=== PATIENT | male | born 1945 | race Caucasian/White ===

== ENCOUNTER 2017-01-30 09:56 | Inpatient (IN) | payer OTHER, MEDICARE ==
[2017-01-30] VITALS (12 sets, daily range): BP systolic 124–195; BP diastolic 69–97; PULSE 60–73; RESP 18–20; TEMP 97.4–98; O2SAT 95–99
[~2017-01-30] VITALS: Ht 182.9 cm; Wt 127.4 kg
[~2017-01-30 09:56] MED LIST: ALPR0.5T99 PO; ASPI81 PO; ATEN-102 PO; BUPR100T PO; BUSP10TA8 PO; CHOL1CAP6 PO; FLUN25I; FURO1TAB93 PO; LEVI20TA PO; POTA20IN2 IV; SILD20TA PO; TRAZ100T50 PO; WAL-10TA2 PO; ZOCO80TA PO
[2017-01-30] MEDS ORDERED: ASPI1TAB69 PO (10:13)
[2017-01-30] MEDS ORDERED: ALPR.5 PO (10:13)
[2017-01-30] MEDS ORDERED: ZOCO80TA PO (10:13)
--- NOTE | 2017-01-30 10:21 | PD ---
HPI Chief Complaint: Chest Pain Time Seen by Provider: 10:20 Travel History International Travel<30 days: No Contact w/Intl Traveler<30days: No Traveled to known affect area: No History of Present Illness HPI 71-year-old male came to the emergency room sent from [place] by ambulance with history of left-sided chest pain on and off for past couple of months. Initially this pain was associated with exertion but lately it has been even at rest. Patient was on the left side of his chest and radiates to his left jaw. Lately it has also been associated with some dizziness and shortness of breath. After listening to this history [place] called 911. Patient was given baby aspirin and 2 sublingual nitroglycerin spray and brought to the emergency room. Currently he is chest pain-free and vital signs are stable. No history of coronary artery disease. He does have history of type 2 diabetes and his sugar this morning was 221. His last stress test was 4-5 years ago and was negative. When the pain comes he describes it like pressure and an aching pain. Currently the pain is 0 out of 10. [facility] Past Medical History Narrative Medical List of his past medical, surgical, social and family history is reviewed from the nursing note. Anxiety: Yes Depression: Yes High Cholesterol: Yes Chest Pain: Yes Congestive Heart Failure: Yes Diabetes: Yes (STATES BORDERLINE) Patient Takes Glucophage: No GERD: Yes Hypertension: Yes Insomnia: Yes Neurologic: Yes (CLOSED HEAD INJURY 2010 AND IN [place]) Respiratory: Yes (bronchitis) Immunizations Current: Yes Tetanus Vaccination: < 5 Years Influenza Vaccination: Yes Past Surgical History Other Surgery: Yes (Pylonal cyst & REMOVAL OF RT SIDE NECK CYST IN 60'S priscilla disc c5-c6) Social History Alcohol Use: No Tobacco Use: No (QUIT 25 YRS AGO) Substance Use: No Allergies-Medications (Allergen,Severity, Reaction): Coded Allergies: No Known Allergies (Verified , 01/23/13) Comments No known drug allergies. Reported Meds & Prescriptions Reported Meds & Active Scripts Active Reported Triamcinolone Topical (Triamcinolone Acetonide) 0.1% Cream 1 Applic TOPICAL BID Apply to rash on face Pravastatin 40 Mg Tab 40 Mg PO HS Metformin (Metformin HCl) 500 Mg Tab 500 Mg PO BID With meals Potassium Chloride ER (Potassium Chloride) 20 Meq Tab 20 Meq PO DAILY Losartan (Losartan Potassium) 100 Mg Tab 100 Mg PO DAILY Hydrocortisone Topical 2.5% Cream 1 Applic TOPICAL BID PRN Lasix (Furosemide) 40 Mg Tab 40 Mg PO DAILY Flonase Nasal Lovell (Fluticasone Nasal Lovell) 50 Mcg/Act Lovell 2 Lovell EACH NARE DAILY Cetirizine (Cetirizine HCl) 10 Mg Tab 10 Mg PO DAILY Buspirone (Buspirone HCl) 10 Mg Tab 20 Mg PO BID Vitamin D-3 (Cholecalciferol) 1,000 Unit Tab 1,000 Units PO DAILY Trazodone HCl 100 Mg Tab 400 Mg PO HS PRN Bupropion HCl 100 Mg Tab 100 Mg PO BID Atenolol 50 Mg Tab 50 Mg PO DAILY Xanax (Alprazolam) 0.5 Mg Tab 0.5 Mg PO DAILY PRN Aspirin 81 Mg Tabdr 81 Mg PO BID Narrative Medication List of his home medications reviewed from the nursing note. Review of Systems Except as stated in HPI: all other systems reviewed are Neg Physical Exam Narrative GENERAL: Awake, alert, obese, no obvious distress SKIN: Warm and dry. HEAD: Atraumatic. Normocephalic. EYES: Pupils equal and round. No scleral icterus. No injection or drainage. ENT: No nasal bleeding or discharge. Mucous membranes pink and moist. NECK: Trachea midline. No JVD. CARDIOVASCULAR: Regular rate and rhythm. No murmur appreciated. RESPIRATORY: No accessory muscle use. Clear to auscultation. Breath sounds equal bilaterally. GASTROINTESTINAL: Abdomen soft, non-tender, nondistended. Hepatic and splenic margins not palpable. MUSCULOSKELETAL: No obvious deformities. No clubbing. No cyanosis. No edema. NEUROLOGICAL: Awake and alert. No obvious cranial nerve deficits. Motor grossly within normal limits. Normal speech. PSYCHIATRIC: Appropriate mood and affect; insight and judgment normal. Data Data Last Documented VS Vital Signs Date Time Temp Pulse Resp B/P Pulse Ox O2 Delivery O2 Flow Rate FiO2 01/30/17 11:14 64 20 126/79 96 Room Air 124/75 01/30/17 10:08 98.0 Orders Electrocardiogram (01/30/17 10:20) Basic Metabolic Panel (Bmp) (01/30/17 10:20) Ckmb (Isoenzyme) Profile (01/30/17 10:20) Complete Blood Count With Diff (01/30/17 10:20) Magnesium (Mg) (01/30/17 10:20) Prothrombin Time / Inr (Pt) (01/30/17 10:20) Act Partial Throm Time (Ptt) (01/30/17 10:20) Troponin I (01/30/17 10:20) Chest, Single Ap (01/30/17 10:20) Ecg Monitoring (01/30/17 10:20) Bilateral Bp Monitoring (01/30/17 10:20) Iv Access Insert/Monitor (01/30/17 10:20) Oximetry (01/30/17 10:20) Oxygen Administration (01/30/17 10:20) Sodium Chloride 0.9% Flush (Ns Flush) (01/30/17 10:30) Ct Brain W/O Iv Contrast(Rout) (01/30/17 ) CKMB (01/30/17 10:43) CKMB% (01/30/17 10:43) Admit Order (Ed Use Only) (01/30/17 12:26) Alprazolam (Xanax) (01/30/17 12:30) Atenolol (Tenormin) (01/30/17 13:00) Bupropion (Wellbutrin) (01/30/17 21:00) Cholecalciferol (Vitamin D3) (01/31/17 09:00) Atorvastatin (Lipitor) (01/31/17 09:00) Trazodone (Desyrel) (01/30/17 21:00) Labs Laboratory Tests Test 01/30/17 10:43 White Blood Count 6.4 TH/MM3 Red Blood Count 4.55 MIL/MM3 Hemoglobin 14.6 GM/DL Hematocrit 41.1 % Mean Corpuscular Volume 90.3 FL Mean Corpuscular Hemoglobin 32.2 PG Mean Corpuscular Hemoglobin 35.6 % Concent Red Cell Distribution Width 13.9 % Platelet Count 131 TH/MM3 Mean Platelet Volume 8.9 FL Neutrophils (%) (Auto) 60.0 % Lymphocytes (%) (Auto) 28.6 % Monocytes (%) (Auto) 7.3 % Eosinophils (%) (Auto) 3.5 % Basophils (%) (Auto) 0.6 % Neutrophils # (Auto) 3.8 TH/MM3 Lymphocytes # (Auto) 1.8 TH/MM3 Monocytes # (Auto) 0.5 TH/MM3 Eosinophils # (Auto) 0.2 TH/MM3 Basophils # (Auto) 0.0 TH/MM3 CBC Comment DIFF FINAL Differential Comment Prothrombin Time 11.5 SEC Prothromb Time International 1.0 RATIO Ratio Activated Partial 26.6 SEC Thromboplast Time Sodium Level 137 MEQ/L Potassium Level 4.8 MEQ/L Chloride Level 105 MEQ/L Carbon Dioxide Level 25.2 MEQ/L Anion Gap 7 MEQ/L Blood Urea Nitrogen 14 MG/DL Creatinine 1.04 MG/DL Estimat Glomerular Filtration 71 ML/MIN Rate Random Glucose 200 MG/DL Hemoglobin A1c 7.9 % Calcium Level 8.9 MG/DL Magnesium Level 2.0 MG/DL Total Bilirubin 0.7 MG/DL Direct Bilirubin 0.1 MG/DL Indirect Bilirubin 0.6 MG/DL Aspartate Amino Transf 70 U/L (AST/SGOT) Alanine Aminotransferase 56 U/L (ALT/SGPT) Alkaline Phosphatase 42 U/L Total Creatine Kinase 174 U/L Creatine Kinase MB 1.4 NG/ML Troponin I LESS THAN 0.02 NG/ML Total Protein 7.2 GM/DL Albumin 3.6 GM/DL Vitamin B12 Level 1119 PG/ML Thyroid Stimulating Hormone 1.240 uIU/ML 3rd Gen [facility] Medical Decision Making Medical Screen Exam Complete: Yes Emergency Medical Condition: Yes Medical Record Reviewed: Yes Interpretation(s) Twelve-lead EKG was reviewed by me. Normal sinus rhythm, normal axis, nonspecific ST-T wave changes. Heart rate of 64 bpm. Differential Diagnosis ACS, non-STEMI, unstable angina Narrative Course 11:29 AM awaiting for the chemistry and troponin. His symptoms sound classic for unstable angina at this point. He should be admitted medically so that a proper coronary artery disease workup can be done. Patient has significant risk factors in the form of uncontrolled diabetes, obesity, hypertension. History is sounds classic for unstable angina. Awaiting for the hospitalist to call back. Chest x-ray was within normal limits. Procedures EKG Prior to Arrival: No Diagnosis Primary Impression: Unstable angina Admitting Information Admitting Physician Requests: Observation Scripts Hydrocodone-Acetaminophen 7.5-325 mg Tab1 Tab PO Q6HR PRN (PAIN SCALE 6 TO 10) # 28 TAB Prov:Patricio Myles MD 02/01/17 Meclizine 25 Mg Tab25 Mg PO Q6H PRN (vertigo) #28 TAB Prov:Patricio Myles MD 01/31/17 Mayra Zamora MD Jan 30, 2017 10:21
[2017-01-30] MEDS ORDERED: SODIUM CHLORIDE 0.9% FLUSH 5 ML FLUSH IVF PRN (10:30)
--- NOTE | 2017-01-30 11:01 | RADRPT ---
EXAM DATE/TIME: 01/30/2017 10:17 [facility] COMPARISON: No previous studies available for comparison. INDICATIONS : Patient has had chest pain and dizziness for two days. MEDICAL HISTORY : None. SURGICAL HISTORY : None. ENCOUNTER: Initial ACUITY: 2 days PAIN SCORE: 3/10 LOCATION: Left chest FINDINGS: A single view of the chest demonstrates the lungs to be symmetrically aerated without evidence of mas s, infiltrate or effusion. The cardiomediastinal contours are unremarkable. Osseous structures are intact. CONCLUSION: No evidence of acute cardiopulmonary disease. Sarbjit Garnica MD on January 30, 2017 at 10:59 Board Certified Radiologist. This report was verified electronically.
[2017-01-30 11:05] LABS: AUTOMATED NEUTROPHIL # 3.8 TH/MM3 (1.8-7.7); BASOPHIL % 0.6 % (0.0-2.0); EOSINOPHIL # 0.2 TH/MM3 (0-0.4); EOSINOPHIL % 3.5 % (0.0-4.0); HEMATOCRIT 41.1 % (39.0-51.0); HEMO FLAGS DIFF FINAL; LYMPH % 28.6 % (9.0-44.0); LYMPHOCYTE # 1.8 TH/MM3 (1.0-4.8); MEAN CELL VOLUME 90.3 FL (80.0-100.0); MEAN CORPUSCULAR HEMOGLOBIN 32.2 PG (27.0-34.0); MEAN CORPUSCULAR HGB CONC 35.6 % (32.0-36.0); MONO % 7.3 % (0.0-8.0); PLATELET COUNT 131 TH/MM3 (150-450); RED BLOOD COUNT 4.55 MIL/MM3 (4.50-5.90); RED CELL DISTRIBUTION WIDTH 13.9 % (11.6-17.2); WHITE BLOOD COUNT 6.4 TH/MM3 (4.0-11.0)
[2017-01-30 11:19] LABS: APTT (PATIENT) 26.6 SEC (24.3-30.1); PROTHROMBIN TIME - PATIENT 11.5 SEC (9.8-11.6)
[2017-01-30] MEDS ORDERED: TRAZ100T5 PO (11:19)
[2017-01-30] MEDS ORDERED: ATEN50TA PO (11:19)
[2017-01-30] MEDS ORDERED: BUPR100T4 PO (11:19)
[2017-01-30] MEDS ORDERED: VITA10003 PO (11:19)
[2017-01-30 11:41] LABS: ANION GAP 7 MEQ/L (5-15); BICARBONATE 25.2 MEQ/L (21.0-32.0); BLOOD UREA NITROGEN 14 MG/DL (7-18); CHLORIDE 105 MEQ/L (98-107); CREATINE KINASE 174 U/L (39-308); GLOMERULAR FILTRATION RATE 71 ML/MIN (>89); SODIUM (NA) 137 MEQ/L (136-145)
[2017-01-30 11:50] LABS: POTASSIUM 4.8 MEQ/L (3.5-5.1)
[2017-01-30 11:53] LABS: CKMB 1.4 NG/ML (0.5-3.6)
--- NOTE | 2017-01-30 12:26 | RADRPT ---
EXAM DATE/TIME: 01/30/2017 11:26 [facility] COMPARISON: No previous studies available for comparison. INDICATIONS : Dizzy weakness for a couple of months RADIATION DOSE: 56.36 CTDIvol (mGy) MEDICAL HISTORY : Hypertension. Congestive heart failure. SURGICAL HISTORY : None. ENCOUNTER: Initial ACUITY: 2 months PAIN SCALE: 0/10 LOCATION: cranial TECHNIQUE: Multiple contiguous axial images were obtained of the head. Using automated exposure control and adj ustment of the mA and/or kV according to patient size, radiation dose was kept as low as reasonably a chievable to obtain optimal diagnostic quality images. FINDINGS: CEREBRUM: The ventricles are normal for age. No evidence of midline shift, mass lesion, hemorrhage or acute in farction. No extra-axial fluid collections are seen. POSTERIOR FOSSA: The cerebellum and brainstem are intact. The 4th ventricle is midline. The cerebellopontine angle i s unremarkable. Anatomic variant Dandy-Walker configuration incidentally noted. EXTRACRANIAL: The visualized portion of the orbits is intact. SKULL: The calvaria is intact. No evidence of skull fracture. CONCLUSION: Negative noncontrast head CT. Sarbjit Garnica MD on January 30, 2017 at 12:24 Board Certified Radiologist. This report was verified electronically.
[2017-01-30] MEDS ORDERED: MAGNESIUM HYDROXIDE SUSP 30 ML CUP PO PRN (12:30)
[2017-01-30] MEDS ORDERED: SENNOSIDES 8.6 MG TAB PO PRN (12:30)
[2017-01-30] MEDS ORDERED: NALOXONE HCL 0.4 MG/ML AMP IV PRN (12:30)
[2017-01-30] MEDS ORDERED: ONDANSETRON HCL 4 MG/2 ML VIAL IVP PRN (12:30)
[2017-01-30] MEDS ORDERED: ACETAMINOPHEN/HYDROcodone 325 MG/5 MG TAB PO PRN (12:30)
[2017-01-30] MEDS ORDERED: SODIUM CHLORIDE 0.9% FLUSH 5 ML FLUSH FLUSH PRN (12:30)
[2017-01-30] MEDS ORDERED: DEXTROSE 50% IN WATER 50 ML VIAL(D50) IV PUSH PRN (12:30)
[2017-01-30] MEDS ORDERED: ACETAMINOPHEN 325 MG TAB PO PRN ×2 (12:30)
[2017-01-30] MEDS ORDERED: GLUCAGON 1 MG/ML VIAL OTHER PRN (12:30)
[2017-01-30] MEDS ORDERED: ALPRAZolam 0.5 MG TAB PO PRN (12:30)
[2017-01-30] MEDS ORDERED: MORPHINE SULFATE 4 MG/ML INJ IV PRN (12:30)
[2017-01-30] MEDS ORDERED: BISACODYL 10 MG SUPP PR PRN (12:30)
[2017-01-30] MEDS ORDERED: NITROGLYCERIN 0.4 MG SL 25 TABS/BTL SL PRN (12:30)
[2017-01-30] MEDS ORDERED: ENALAPRILAT 1.25 MG/ML VIAL IV PRN (12:30)
--- NOTE | 2017-01-30 13:17 | HHI.HP ---
[facility] Service [facility] Primary Care Physician Akiko Francis MD Admission Diagnosis chest pain, rule out ACS Diagnoses: Chief Complaint: chest pain Travel History International Travel<30 Days: No Contact w/Intl Traveler <30 Da: No Traveled to Known Affected Are: No History of Present Illness 71-year-old male with history of HTN, HLD, DM, BPPV, presents with intermittent chest pains. The patient reports the chest pain started 2 months ago and now becoming worse and more frequent. The pains are located at the left anterior lateral chest with radiation into the left shoulder and jaw, described as an intermittent 3/10 ache, associated with mild shortness of breath, but no nausea/ vomiting, palpitations or diaphoresis. The pain can come on at anytime, can be sitting down or he can be walking, but he believes it may be related more to exertion. The pains typically last 30-40seconds at time then subsides on his own. The patient has become concerned over the past 2 days. He states yesterday he was pressure washing his house and had to rest every few minutes because of the pains and shortness of breath. He also walked down the driveway today and became extremely short of breath when he returned. Denies lower extremity edema. Denies any recent weight gain and actually reports he is intentionally trying to lose weight, down to 270lbs from 330lbs. The patient also complains of severe dizziness separate from the chest pains. He states he has had problems with vertigo ever since he fell from [facility] and hit his head on cement in [place] 3years ago, reportedly in a coma. Denies any hearing loss. He also reports extreme weakness. He states if he is on the ground, he is unable to get himself off the floor. He states [facility]. He has no other medical complaints at this time. Review of Systems Constitutional: COMPLAINS OF: Weight loss, Dizziness, DENIES: Diaphoretic episodes, Weight gain, Chills, Change in appetite Endocrine: DENIES: Polydipsia, Polyuria, Polyphagia Eyes: DENIES: Blurred vision, Vision loss, Double Vision Ears, nose, mouth, throat: COMPLAINS OF: Vertigo, DENIES: Ear Pain, Running Nose Respiratory: COMPLAINS OF: Shortness of breath, DENIES: Cough, Sputum production Cardiovascular: COMPLAINS OF: Chest pain, Dyspnea on Exertion, DENIES: Palpitations, Syncope, Lower Extremity Edema, Orthopnea Gastrointestinal: COMPLAINS OF: Diarrhea, DENIES: Abdominal pain, Constipation , Nausea, Vomiting Genitourinary: DENIES: Urinary frequency, Urgency, Dysuria Musculoskeletal: DENIES: Joint pain, Back pain, Neck pain Integumentary: DENIES: Pruritus, Rash Hematologic/lymphatic: DENIES: Bruising, Lymphadenopathy Immunologic/allergic: DENIES: Eczema, Urticaria Neurologic: DENIES: Abnormal gait, Headache, Localized weakness Psychiatric: DENIES: Anxiety, Depression Past Family Social History Past Medical History Hypertension Hyperlipidemia Diabetes Mellitus BPPV Hx of head trauma 3 years ago, now resulted in vertigo BPH Fatty Liver Thoracic aortic aneurysm PTSD Colon polyp Erectile dysfunction Past Surgical History C5-6 fusion Pilonidal cyst removed Reported Medications Vitamin D-3 (Cholecalciferol) 1,000 Unit Tab 1,000 Units PO DAILY Trazodone HCl 100 Mg Tab 300 Mg PO DAILY HS Bupropion HCl 100 Mg Tab 100 Mg PO BID Atenolol 50 Mg Tab 50 Mg PO DAILY Xanax (Alprazolam) 0.5 Mg Tab 0.5 Mg PO Q4H PRN Zocor (Simvastatin) 80 Mg Tab 80 Mg PO DAILY Aspirin 81 Mg Tabdr 81 Mg PO DAILY Sildenafil Citrate 20 Mg Tab 100 Mg PO DAILYPRN TAKE 1 HOUR PRIOR TO SEXUAL ACTIVITY Loratadine 10 Mg Tab 10 Mg PO DAILY Levitra (Vardenafil HCl) 20 Mg Tab 20 Mg PO Metformin bid Allergies: Coded Allergies: No Known Allergies (Verified , 01/23/13) Active Ordered Medications Current Medications Medications (Trade) Dose Ordered Sig/Jasper Route Start Time Stop Time Status Last Admin (Xanax) 0.5 mg Q4H PRN PO 01/30/17 12:30 (Tenormin) 50 mg DAILY PO 01/30/17 13:00 (Wellbutrin) 100 mg BID PO 01/30/17 21:00 (Vitamin D3) 1,000 units DAILY PO 01/31/17 09:00 Non-Formulary Medication 80 mg DAILY PO 01/31/17 09:00 UNV (Desyrel) 300 mg HS PO 01/30/17 21:00 (D50w (Vial) Inj) 25 ml UNSCH PRN IV PUSH 01/30/17 12:30 (Glucagon Inj) 1 mg UNSCH PRN OTHER 01/30/17 12:30 (Vasotec Inj) 1.25 mg Q6H PRN IV 01/30/17 12:30 (Catapres) 0.1 mg Q6H PRN PO 01/30/17 12:30 (Aspirin) 325 mg DAILY PO 02/01/17 09:00 (Nitrostat Sl) 0.4 mg Q5M PRN SL 01/30/17 12:30 (NS Flush) 2 ml UNSCH PRN FLUSH 01/30/17 12:30 (NS Flush) 2 ml BID FLUSH 01/30/17 21:00 (Tylenol) 650 mg Q4H PRN PO 01/30/17 12:30 (Zofran Inj) 4 mg Q6H PRN IVP 01/30/17 12:30 (Dulcolax Supp) 10 mg DAILY PRN IN 01/30/17 12:30 (Colace) 100 mg Q12H PO 01/30/17 13:00 (Milk Of Magnesia Liq) 30 ml Q12H PRN PO 01/30/17 12:30 (Senokot) 17.2 mg Q12H PRN PO 01/30/17 12:30 (Tylenol) 650 mg Q6H PRN PO 01/30/17 12:30 (Duncan 5-325 Mg) 1 tab Q4H PRN PO 01/30/17 12:30 (Duncan 7.5-325 Mg) 1 tab Q4H PRN PO 01/30/17 12:30 (Morphine Inj) 1 mg Q3H PRN IV 01/30/17 12:30 (Narcan Inj) 0.4 mg UNSCH PRN IV 01/30/17 12:30 Family History Father with massive AL, age 36 Social History Quit smoking tobacco 25years ago Denies any alcohol use Denies any illicit drug use Physical Exam Vital Signs Vital Signs Date Time Temp Pulse Resp B/P Pulse Ox O2 Delivery O2 Flow Rate FiO2 3/8/17 12:44 62 20 144/78 99 Room Air 01/30/17 11:14 64 20 126/79 96 Room Air 124/75 01/30/17 11:13 73 20 126/69 96 Room Air 01/30/17 11:12 97 Room Air 01/30/17 11:10 65 20 97 Room Air 01/30/17 11:10 98 Room Air 01/30/17 10:08 98.0 66 20 97 Physical Exam GENERAL: Well-nourished, well-developed obese male patient in NAD. SKIN: Warm and dry. No rash. HEAD: Normocephalic. Atraumatic. EYES: Pupils equal and round. No scleral icterus. No injection or drainage. No nystagmus. ENT: No nasal bleeding or discharge. Mucous membranes pink and moist. NECK: Supple. Trachea midline. CARDIOVASCULAR: Regular rate and rhythm. S1, S2 noted. No murmur appreciated. RESPIRATORY: No accessory muscle use. Clear to auscultation. Breath sounds equal bilaterally. GASTROINTESTINAL: Abdomen soft, non-tender, nondistended. Normoactive bowel sounds x4. MUSCULOSKELETAL: No obvious deformities. Trace b/l lower extremity edema. NEUROLOGICAL: Awake and alert. No obvious cranial nerve deficits. Motor grossly within normal limits. 5/5 muscle strength in bilateral upper and lower extremities. Normal speech. PSYCHIATRIC: Slightly anxious mood; insight and judgment normal. Laboratory Laboratory Tests Test 01/30/17 10:43 White Blood Count 6.4 Red Blood Count 4.55 Hemoglobin 14.6 Hematocrit 41.1 Mean Corpuscular Volume 90.3 Mean Corpuscular Hemoglobin 32.2 Mean Corpuscular Hemoglobin 35.6 Concent Red Cell Distribution Width 13.9 Platelet Count 131 Mean Platelet Volume 8.9 Neutrophils (%) (Auto) 60.0 Lymphocytes (%) (Auto) 28.6 Monocytes (%) (Auto) 7.3 Eosinophils (%) (Auto) 3.5 Basophils (%) (Auto) 0.6 Neutrophils # (Auto) 3.8 Lymphocytes # (Auto) 1.8 Monocytes # (Auto) 0.5 Eosinophils # (Auto) 0.2 Basophils # (Auto) 0.0 CBC Comment DIFF FINAL Differential Comment Prothrombin Time 11.5 Prothromb Time International 1.0 Ratio Activated Partial 26.6 Thromboplast Time Sodium Level 137 Potassium Level 4.8 Chloride Level 105 Carbon Dioxide Level 25.2 Anion Gap 7 Blood Urea Nitrogen 14 Creatinine 1.04 Estimat Glomerular Filtration 71 Rate Random Glucose 200 Calcium Level 8.9 Magnesium Level 2.0 Total Creatine Kinase 174 Creatine Kinase MB 1.4 Troponin I LESS THAN 0.02 Result Diagram: 01/30/17 1043 01/30/17 1043 Imaging Last Impressions Chest X-Ray 01/30/17 1020 Signed Impressions: Service Date/Time: Monday, January 30, 2017 10:17 - CONCLUSION: No evidence of acute cardiopulmonary disease. Sarbjit Garnica MD Head CT 01/30/17 0000 Signed Impressions: Service Date/Time: Monday, January 30, 2017 11:26 - CONCLUSION: Negative noncontrast head CT. Sarbjit Garnica MD Assessment and Plan Assessment and Plan 71-year-old male with history of HTN, HLD, DM, BPPV, presents with intermittent chest pains located at the left anterior lateral chest with radiation into the left shoulder and jaw, described as an intermittent 3/10 ache, associated with mild shortness of breath, but no nausea/vomiting, palpitations or diaphoresis. Chest Pain, suspect ACS: some typical and atypical components. S/p 2 aspirin and nitro spray prior to arrival. Initial troponin negative and EKG without acute STT changes, continue to trend serial cardiac enzymes/EKGs. Continue aspirin, statin, atenolol. IV morphine prn pain. Hold off on heparin for now unless troponins are positive. Check lipid panel and HgbA1c. Consult cardiology. Check echo. Monitor on telemetry. Dizziness, suspect BPPV: secondary to head trauma 3years ago. Head CT images reviewed by me, negative for acute findings. Start meclizine 25mg po q6h. Generalized Weakness: unclear etiology, work up in progress. Check TSH, vitamin B12. Consult PT. Diabetes Mellitus: reportedly on metformin at home, RN to update med rec, hold metformin for now. Monitor Accu-cheks and cover with SSI. Check HgbA1c. Hypertension: chronic, continue patient's atenolol. Monitor BP, adjust antihypertensives as needed. Hyperlipidemia: chronic, continue patient's statin. Check lipid panel in am. PTSD/Depression: chronic, continue patient's Bupropion, Trazodone, Xanax prn. DVT Prophylaxis: teds/SCDs Written by Theresa Dominique, acting as scribe for Dr. Myles on 01/30/17 at 13:29. All or portions of this note were transcribed by scribe []. I, Dr. Patricio Myles personally performed the history, physical exam, and medical decision making; and confirmed the accuracy of the information in the transcribed note. Authenticated by Dr. Patricio Myles on 01/30/17 at 17:17. Discussed Condition With Patient, ER MD, [employer] Physician Certification 2 Midnight Certification Type: Admission for Inpatient Services Order for Inpatient Services The services are ordered in accordance with Medicare regulations or non- Medicare payer requirements, as applicable. In the case of services not specified as inpatient-only, they are appropriately provided as inpatient services in accordance with the 2-midnight benchmark. Estimated LOS (days): 2 days is the estimated time the patient will need to remain in the hospital, assuming treatment plan goals are met and no additional complications. Post-Hospital Plan: Home Theresa Dominique PA-C Jan 30, 2017 13:17 Patricio Myles MD Jan 30, 2017 17:17
[2017-01-30] MEDS: ATENOLOL 50 MG TAB PO SCH (13:20)
[2017-01-30] MEDS: DOCUSATE SODIUM 100 MG CAP PO SCH (13:20)
[2017-01-30] MEDS ORDERED: MECLIZINE HCL 25 MG TAB PO PRN (13:30)
[2017-01-30] MEDS ORDERED: METF500T PO (13:54)
[2017-01-30] MEDS ORDERED: HYDR2.5C TOPICAL (13:54)
[2017-01-30] MEDS ORDERED: POTA-163 PO (13:54)
[2017-01-30] MEDS ORDERED: FURO1TAB60 PO (13:54)
[2017-01-30] MEDS ORDERED: FLUT1SPR5 EACH NARE (13:54)
[2017-01-30] MEDS ORDERED: LOSA100T PO (13:54)
[2017-01-30] MEDS ORDERED: PRAV40TA2 PO (13:54)
[2017-01-30] MEDS ORDERED: CETI10 PO (13:54)
[2017-01-30] MEDS ORDERED: BUSP10TA PO (13:54)
[2017-01-30] MEDS ORDERED: TRIA.1%T TOPICAL (13:57)
[2017-01-30 15:19] LABS: ALKALINE PHOSPHATASE 42 U/L (45-117); ALT (GPT) 56 U/L (12-78); INDIRECT BILIRUBIN 0.6 MG/DL (0.0-0.8); TOTAL BILIRUBIN ADULT 0.7 MG/DL (0.2-1.0)
[2017-01-30] MEDS: ACETAMINOPHEN/HYDROcodone 325 MG/7.5 MG TAB PO PRN (15:24)
[2017-01-30 15:29] LABS: AST (GOT) 70 U/L (15-37)
[2017-01-30 15:54] LABS: HEMOGLOBIN A1a 0.7 %; HEMOGLOBIN A1b 2.2 %; HEMOGLOBIN Ao 82.1 %; HEMOGLOBIN LA1C 2.6 %; HEMOGLOBIN P3 4.2 %
[2017-01-30] MEDS: INSULIN ASPART SUPPLEMENTAL SCALE SQ SCH ×2 (16:49→20:35)
--- NOTE | 2017-01-30 17:39 | EC ---
Study Study Date:01/30/2017 STUDY CONCLUSIONS SUMMARY - Procedure narrative: Image quality was fair. The study was technically limited due to poor acoustic window availability. - Left ventricle: The cavity size was normal. Wall thickness was increased in a pattern of mild LVH. There was concentric hypertrophy. Systolic function was normal. The estimated ejection fraction was in the range of 60% to 65%. Probable diastolic dysfunction, but this study is not technically sufficient to allow evaluation of LV diastolic function staging. If LV function is below 40, please consider prescribing an ACEI or ARB or document rationale for non-use. PROCEDURE DATA STUDY STATUS: Elective. Procedure: Transthoracic echocardiography. Image quality was fair. The study was technically limited due to poor acoustic window availability. Scanning was performed from the parasternal, apical, and subcostal acoustic windows. Study completion: The patient tolerated the procedure well. Transthoracic echocardiography. M-mode, complete 2D, complete spectral Doppler, and color Doppler. Height: Height: 72in. Weight: Weight: 267.4lb. Body mass index: BMI: 36.3kg/m^2. Body surface area: BSA: 2.41m^2. Patient status: Inpatient. CARDIAC ANATOMY LEFT VENTRICLE: The cavity size was normal. Wall thickness was increased in a pattern of mild LVH. There was concentric hypertrophy. Systolic function was normal. The estimated ejection fraction was in the range of 60% to 65%. Images were inadequate for LV wall motion assessment. Probable diastolic dysfunction, but this study is not technically sufficient to allow evaluation of LV diastolic function staging. AORTIC VALVE: The valve appears to be grossly normal. Doppler: There was no stenosis. No significant regurgitation. Valve area: 2.9cm^2(VTI). Indexed valve area: 1.2cm^2/m^2 (VTI). Valve area: 2.85cm^2 (Vmax). Indexed valve area: 1.18cm^2/m^2 (Vmax). Mean gradient: 2mm Hg (S). MITRAL VALVE: The valve appears to be grossly normal. Doppler: There was no evidence for stenosis. Trace regurgitation. LEFT ATRIUM: The atrium was normal in size. RIGHT VENTRICLE: Not well visualized. PULMONIC VALVE: Not well visualized. TRICUSPID VALVE: Poorly visualized. Doppler: There was no evidence for stenosis. No significant regurgitation. Patient weight: 267.4lb _Ejection fraction:_ 65-75% _Fractional shortening:_ 32% up to 5Kg 5-11.5Kg 11.6-22.9Kg 23-45Kg 45-57Kg Aortic Root 7-13 <17 13-22 17-27 17-27 LA diam 6-13 <23 24-38 33-47 37-40 RVID 10-17 7-15 7-15 7-18 8-17 LVIDd 12-22 <32 24-38 33-47 37-40 LVPW 2-4 3-6 5-7 6-8 7-8 IVS 2-4 3-6 5-7 6-8 7-8 BASIC MEASUREMENTS ADULT NORMAL Left ventricle LV internal dimension, ED, chordal 46.8 mm 43-52 level, PLAX LV internal dimension, ES, chordal 31.6 mm 23-38 level, PLAX Fractional shortening, chordal level, 32 % >29 PLAX LV posterior wall thickness, ED 11.6 mm IVS/LVPW ratio, ED 1 <1.3 Ventricular septum Septal thickness, ED 11.6 mm Aortic valve Leaflet separation 18 mm 15-26 Aorta Root diameter, ED 36 mm Left atrium Anterior-posterior dimension 32 mm Anterior-posterior dimension index 1.33 cm/m^2 <2.2 BASIC MEASUREMENTS ADULT NORMAL Aortic valve Leaflet separation 18 mm 15-26 DOPPLER MEASUREMENTS ADULT NORMAL Aortic valve Peak velocity, S 86.8 cm/s Mean velocity, S 61.6 cm/s VTI, S 17.4 cm Mean gradient, S 2 mm Hg Valve area, VTI 2.9 cm^2 Valve area index, VTI 1.2 cm^2/m^2 Valve area, Vmax 2.85 cm^2 Valve area index, Vmax 1.18 cm^2/m^2 Mitral valve Peak E-wave velocity 65.6 cm/s Peak A-wave velocity 47.4 cm/s Deceleration time *232 ms 150-230 Peak E/A ratio 1.4 Pulmonic valve Peak velocity, S 45.9 cm/s LEGEND: Mean values are shown as u=mean value. Asterisk (*) woods values outside specified normal range. Prepared and signed by Chase Moon [id number]
--- NOTE | 2017-01-30 18:24 | EKG ---
Date Performed: 01/30/2017 Time Performed: 10:27:49 PTAGE: 71 years EKG: Sinus rhythm NORMAL ECG NO PREVIOUS TRACING DOCTOR: Fracisco Dumont Interpretating Date/Time 01/30/2017 18:23:00
[2017-01-30 18:34] LABS: CREATINE KINASE 130 U/L (39-308)
[2017-01-30] MEDS: traZODone HCL 100 MG TAB PO SCH (20:34)
[2017-01-30] MEDS: buPROPion HCL 100 MG TAB PO SCH (20:34)
[2017-01-30] MEDS: SODIUM CHLORIDE 0.9% FLUSH 5 ML FLUSH FLUSH SCH (20:35)
[2017-01-30] MEDS: cloNIDine HCL 0.1 MG TAB PO PRN (20:46)
[2017-01-31] VITALS (9 sets, daily range): BP systolic 128–168; BP diastolic 72–97; PULSE 60–67; RESP 18–20; TEMP 97.2–98.4; O2SAT 95–98
[2017-01-31 00:32] LABS: HDL CHOLESTEROL 36.1 MG/DL (40.0-60.0); LDL CHOLESTEROL 87 MG/DL (0-99)
[2017-01-31 00:34] LABS: CREATINE KINASE 95 U/L (39-308)
[2017-01-31] MEDS: DOCUSATE SODIUM 100 MG CAP PO SCH ×3 (01:00→22:25)
[2017-01-31] MEDS: INSULIN ASPART SUPPLEMENTAL SCALE SQ SCH ×4 (05:26→22:24)
[2017-01-31] MEDS: buPROPion HCL 100 MG TAB PO SCH ×2 (07:56→22:21)
[2017-01-31] MEDS: CHOLECALCIFEROL (VIT D3) 1000 UNIT TAB PO SCH (07:57)
[2017-01-31] MEDS: ATENOLOL 50 MG TAB PO SCH (07:57)
[2017-01-31] MEDS: ATORVASTATIN 40 MG TAB PO SCH (07:57)
[2017-01-31] MEDS: SODIUM CHLORIDE 0.9% FLUSH 5 ML FLUSH FLUSH SCH ×2 (07:57→22:21)
--- NOTE | 2017-01-31 10:43 | EKG ---
Date Performed: 01/30/2017 Time Performed: 17:48:18 PTAGE: 71 years EKG: Sinus rhythm NORMAL ECG PREVIOUS TRACING : 01/30/2017 10.27 Compared to prior tracing no significant change DOCTOR: Kraig Diaz Interpretating Date/Time 01/31/2017 10:42:24
--- NOTE | 2017-01-31 12:03 | HHI.PR ---
Subjective Remarks Follow-up chest pain and shortness of breath. Improved patient without complaints today. Echocardiogram results discussed. Agrees with chemical stress test in the morning. Objective Vitals Vital Signs Date Time Temp Pulse Resp B/P Pulse Ox O2 Delivery O2 Flow Rate FiO2 01/31/17 08:05 66 01/31/17 08:04 97.4 65 20 168/95 95 01/31/17 04:00 97.9 60 20 128/72 98 01/31/17 00:44 98.4 62 18 137/73 96 01/30/17 20:14 60 01/30/17 20:00 97.4 65 20 195/97 96 01/30/17 16:49 65 20 164/84 95 Room Air 01/30/17 15:32 68 18 142/85 97 Room Air 01/30/17 15:15 64 20 174/91 95 Room Air 01/30/17 15:10 69 20 174/91 97 Room Air 01/30/17 13:19 96 21 01/30/17 12:44 62 20 144/78 99 Room Air I/O 01/30/17 01/30/17 01/30/17 01/31/17 01/31/17 01/31/17 07:00 15:00 23:00 07:00 15:00 23:00 Intake Total 240 ml 600 ml Output Total 800 ml Balance 240 ml -200 ml Intake Oral 240 ml 600 ml Output Urine Total 800 ml # Voids 1 # Bowel Movements 0 0 Result Diagram: 01/30/17 1043 01/30/17 1043 Imaging Last Impressions Chest X-Ray 01/30/17 1020 Signed Impressions: Service Date/Time: Monday, January 30, 2017 10:17 - CONCLUSION: No evidence of acute cardiopulmonary disease. Sarbjit Garnica MD Head CT 01/30/17 0000 Signed Impressions: Service Date/Time: Monday, January 30, 2017 11:26 - CONCLUSION: Negative noncontrast head CT. Sarbjit Garnica MD Objective Remarks GENERAL: Well-nourished, well-developed obese male patient in [facility]. SKIN: Warm and dry. No rash. HEAD: Normocephalic. Atraumatic. EYES: Pupils equal and round. No scleral icterus. No injection or drainage. No nystagmus. ENT: No nasal bleeding or discharge. Mucous membranes pink and moist. NECK: Supple. Trachea midline. CARDIOVASCULAR: Regular rate and rhythm. S1, S2 noted. No murmur appreciated. RESPIRATORY: No accessory muscle use. Clear to auscultation. Breath sounds equal bilaterally. GASTROINTESTINAL: Abdomen soft, non-tender, nondistended. Normoactive bowel sounds x4. MUSCULOSKELETAL: No obvious deformities. Trace b/l lower extremity edema. NEUROLOGICAL: Awake and alert. No obvious cranial nerve deficits. Motor grossly within normal limits. 5/5 muscle strength in bilateral upper and lower extremities. Normal speech. PSYCHIATRIC: Slightly anxious mood; insight and judgment normal. Procedures Non- A/P Assessment and Plan 71-year-old male with history of HTN, HLD, DM, BPPV, presents with intermittent chest pains located at the left anterior lateral chest with radiation into the left shoulder and jaw, described as an intermittent 3/10 ache, associated with mild shortness of breath, but no nausea/vomiting, palpitations or diaphoresis. Chest Pain, suspect ACS: some typical and atypical components. S/p 2 aspirin and nitro spray prior to arrival. Ruled out for [place]. Continue aspirin, statin, atenolol. IV morphine prn pain. Hold off on heparin for now unless troponins are positive. Check lipid panel and HgbA1c LDL 87 A1c 7.9. Consult cardiology. Monitor on telemetry. 4 stress test in the morning Dizziness, suspect BPPV: secondary to head trauma 3years ago. Head CT images reviewed by me, negative for acute findings. Start meclizine 25mg po q6h. improved Dyspnea on exertion and Generalized Weakness related to acute diastolic heart failure. Start low-dose Lasix with potassium supplementation. CHF education, I /O and monitor weight Diabetes Mellitus: reportedly on metformin at home, RN to update med rec, hold metformin for now. Monitor Accu-cheks and cover with SSI. A1c 7.9 Hypertension: chronic, continue patient's atenolol. Monitor BP, adjust antihypertensives as needed. Hyperlipidemia: chronic, continue patient's statin. Monitor LFTs AST slightly up PTSD/Depression: chronic, continue patient's Bupropion, Trazodone, Xanax prn. DVT Prophylaxis: teds/SCDs Discharge Planning Discharge in the morning if stress test negative Patricio Myles MD Jan 31, 2017 12:03
[2017-01-31] MEDS: FUROSEMIDE 20 MG TAB PO SCH (12:30)
[2017-01-31] MEDS: POTASSIUM CHLORIDE 10 MEQ CONTROLLED RELEASE TAB PO SCH (12:30)
[2017-01-31] MEDS ORDERED: MECL-62 PO (13:27)
--- NOTE | 2017-01-31 13:28 | HHI.DCPOC ---
Discharge Care Plan Diagnosis: (1) Unstable angina Your Health Problems Are: Difficulty with ADL Exercise Tolerance Goals to Promote Your Health * To prevent worsening of your condition and complications * To maintain your health at the optimal level Directions to Meet Your Goals Take your medications as prescribed Follow your dietary instruction Follow activity as directed Keep your appointments as scheduled Take your immunizations and boosters as scheduled If your symptoms worsen call your PCP, if no PCP go to Urgent Care Center or Emergency Room Smoking is Dangerous to Your Health. Avoid second hand smoke Call the 24-hour hour crisis hotline for domestic abuse at Patricio Myles MD Jan 31, 2017 13:27
[2017-01-31] MEDS: ACETAMINOPHEN/HYDROcodone 325 MG/7.5 MG TAB PO PRN (18:45)
[2017-01-31] MEDS: traZODone HCL 100 MG TAB PO SCH (22:21)
[2017-02-01] VITALS: BP 159/80; PULSE 58; RESP 22; TEMP 97.3; O2SAT 98
[2017-02-01 04:00] VITALS: BP 188/87; PULSE 69; RESP 24; TEMP 97.4; O2SAT 92
[2017-02-01] MEDS: cloNIDine HCL 0.1 MG TAB PO PRN (04:50)
[2017-02-01] MEDS: INSULIN ASPART SUPPLEMENTAL SCALE SQ SCH ×2 (04:58→11:00)
[2017-02-01 07:46] VITALS: O2SAT 94
[2017-02-01 08:00] VITALS: BP 178/94; PULSE 69; RESP 18; TEMP 97.4; O2SAT 97
[2017-02-01 08:11] LABS: BICARBONATE 29.1 MEQ/L (21.0-32.0); MAGNESIUM 2.1 MG/DL (1.5-2.5); POTASSIUM 3.9 MEQ/L (3.5-5.1)
[2017-02-01] MEDS: buPROPion HCL 100 MG TAB PO SCH (08:27)
[2017-02-01] MEDS: CHOLECALCIFEROL (VIT D3) 1000 UNIT TAB PO SCH (08:27)
[2017-02-01] MEDS: ATORVASTATIN 40 MG TAB PO SCH (08:27)
[2017-02-01] MEDS: ATENOLOL 50 MG TAB PO SCH (08:27)
[2017-02-01] MEDS: SODIUM CHLORIDE 0.9% FLUSH 5 ML FLUSH FLUSH SCH (08:28)
[2017-02-01] MEDS: POTASSIUM CHLORIDE 10 MEQ CONTROLLED RELEASE TAB PO SCH (08:28)
[2017-02-01] MEDS: FUROSEMIDE 20 MG TAB PO SCH (08:28)
[2017-02-01] MEDS ORDERED: ASPIRIN 325 MG TAB PO SCH (09:00)
[2017-02-01] MEDS ORDERED: HEPARIN SODIUM - SQ 10,000 UNITS/ML VIAL SQ SCH (09:00)
[2017-02-01] MEDS ORDERED: REGADENOSON INJ 0.4 MG/5 ML SYR ONE (09:20)
--- NOTE | 2017-02-01 11:04 | RADRPT ---
EXAM DATE/TIME: 01/31/2017 14:33 [place] COMPARISON: No previous studies available for comparison. INDICATIONS : Left sided chest pain with shortness of breath for two months. Angina. DOSE: 30.0 mCi Tc99m Myoview at stress. 30.1 mCi Tc99m Myoview at rest. 0.4 mg Lexiscan STRESS SYMPTOMS: Dyspnea. EJECTION FRACTION: 47% MEDICAL HISTORY : Diabetes mellitus type 2. Hypertension. SURGICAL HISTORY : Fusion, cervical. ENCOUNTER: Initial ACUITY: 2 months PAIN SCALE: 3/10 LOCATION: Left chest TECHNIQUE: The patient underwent pharmacologic stress with infusion of prescribed dose. Continuous ECG tracing was monitored during stress. Gated SPECT imaging was performed after stress and conventional SPECT i maging was performed at rest. The examination was performed on a SPECT/CT scanner, both attenuation and non-corrected datasets were reviewed. FINDINGS: DISTRIBUTION: The maximum perfused segment at stress is in the inferior wall. PERFUSION STUDY: Small fixed defect seen at the apex. GATED STUDY: Focal apical hypokinetic area. CONCLUSION: 1. No stress-induced ischemia or other acute abnormality seen. 2. 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 3. Low normal left ventricular ejection fraction. RISK CATEGORY: Low Sarbjit Garnica MD on February 01, 2017 at 11:01 Board Certified Radiologist. This report was verified electronically.
[2017-02-01 12:00] VITALS: BP 156/93; PULSE 68; RESP 18; TEMP 97.8; O2SAT 95
--- NOTE | 2017-02-01 12:07 | HHI.PR ---
Subjective Remarks F/u HF. Doing okay denies chest pain, shortness of breath and weakness. Admits to noncompliance with medical therapy. Patient has been counseled. Discussed with RN Objective Vitals Vital Signs Date Time Temp Pulse Resp B/P Pulse Ox O2 Delivery O2 Flow Rate FiO2 02/01/17 08:00 97.4 69 18 178/94 97 02/01/17 07:46 94 02/01/17 04:00 97.4 69 24 188/87 92 02/01/17 00:00 97.3 58 22 159/80 98 01/31/17 22:00 67 01/31/17 20:00 97.6 65 20 157/97 95 01/31/17 19:56 96 21 01/31/17 16:03 97.2 61 20 167/96 97 I/O 01/31/17 01/31/17 01/31/17 02/01/17 02/01/17 02/01/17 07:00 15:00 23:00 07:00 15:00 23:00 Intake Total 600 ml 600 ml Output Total 800 ml Balance -200 ml 600 ml Intake Oral 600 ml 600 ml Output Urine Total 800 ml # Voids 5 # Bowel Movements 0 1 Result Diagram: 01/30/17 1043 02/01/17 0549 Objective Remarks GENERAL: Well-nourished, well-developed obese male patient in [facility]. SKIN: Warm and dry. No rash. HEAD: Normocephalic. Atraumatic. EYES: Pupils equal and round. No scleral icterus. No injection or drainage. No nystagmus. ENT: No nasal bleeding or discharge. Mucous membranes pink and moist. NECK: Supple. Trachea midline. CARDIOVASCULAR: Regular rate and rhythm. S1, S2 noted. No murmur appreciated. RESPIRATORY: No accessory muscle use. Clear to auscultation. Breath sounds equal bilaterally. GASTROINTESTINAL: Abdomen soft, non-tender, nondistended. Normoactive bowel sounds x4. MUSCULOSKELETAL: No obvious deformities. Trace b/l lower extremity edema. NEUROLOGICAL: Awake and alert. No obvious cranial nerve deficits. Motor grossly within normal limits. 5/5 muscle strength in bilateral upper and lower extremities. Normal speech. Nonfocal PSYCHIATRIC: Slightly anxious mood; insight and judgment normal. Procedures Non- A/P Assessment and Plan 71-year-old male with history of HTN, HLD, DM, BPPV, presents with intermittent chest pains located at the left anterior lateral chest with radiation into the left shoulder and jaw, described as an intermittent 3/10 ache, associated with mild shortness of breath, but no nausea/vomiting, palpitations or diaphoresis. Chest Pain, suspect ACS: some typical and atypical components. S/p 2 aspirin and nitro spray prior to arrival. Ruled out for [place]. Continue aspirin, statin, atenolol. IV morphine prn pain. Hold off on heparin for now unless troponins are positive. Checked lipid panel and HgbA1c LDL 87 A1c 7.9. Monitor on telemetry. Lexiscan without ischemia Dizziness, suspect BPPV: secondary to head trauma 3years ago. Head CT images reviewed by me, negative for acute findings. Start meclizine 25mg po q6h. improved Dyspnea on exertion and Generalized Weakness related to acute diastolic heart failure. Improved continue Lasix with potassium supplementation. CHF education , I/O and monitor weight. Counseled regarding noncompliance. Diabetes Mellitus: reportedly on metformin at home, Will restart. Monitor Accu- cheks and cover with SSI. A1c 7.9 Hypertension: chronic, continue patient's atenolol. Monitor BP, adjust antihypertensives as needed. Restart losartan Hyperlipidemia: chronic, continue patient's statin. Monitor LFTs AST slightly up PTSD/Depression: chronic, continue patient's Bupropion, Trazodone, Xanax prn. DVT Prophylaxis: teds/SCDs Discharge Planning Stable for discharge Patricio Myles MD Feb 01, 2017 12:07
[2017-02-01] MEDS ORDERED: HYDR-3580 PO (13:28)
--- NOTE | 2017-02-01 13:29 | HHI.DS ---
Discharge Summary Admission Date Jan 30, 2017 at 12:28 Discharge Date: Feb 01, 2017 Admitting Diagnosis chest pain, rule out ACS (1) Acute diastolic heart failure ICD Code: I50.31 Diagnosis: Principal Procedures Non- Brief History - From Admission 71-year-old male with history of HTN, HLD, DM, BPPV, presents with intermittent chest pains. The patient reports the chest pain started 2 months ago and now becoming worse and more frequent. The pains are located at the left anterior lateral chest with radiation into the left shoulder and jaw, described as an intermittent 3/10 ache, associated with mild shortness of breath, but no nausea/ vomiting, palpitations or diaphoresis. The pain can come on at anytime, can be sitting down or he can be walking, but he believes it may be related more to exertion. The pains typically last 30-40seconds at time then subsides on his own. The patient has become concerned over the past 2 days. He states yesterday he was pressure washing his house and had to rest every few minutes because of the pains and shortness of breath. He also walked down the driveway today and became extremely short of breath when he returned. Denies lower extremity edema. Denies any recent weight gain and actually reports he is intentionally trying to lose weight, down to 270lbs from 330lbs. The patient also complains of severe dizziness separate from the chest pains. He states he has had problems with vertigo ever since he fell from [facility] and hit his head on cement in [place] 3years ago, reportedly in a coma. Denies any hearing loss. He also reports extreme weakness. He states if he is on the ground, he is unable to get himself off the floor. He states [facility]. He has no other medical complaints at this time. CBC/BMP: 01/30/17 1043 02/01/17 0549 Significant Findings Laboratory Tests Test 01/30/17 01/30/17 01/30/17 02/01/17 10:43 17:34 23:49 05:49 Platelet Count 131 TH/MM3 (150-450) Estimat Glomerular Filtration 71 ML/MIN (>89) 69 ML/MIN (>89) Rate Random Glucose 200 MG/DL 187 MG/DL (74-106) (74-106) Hemoglobin A1c 7.9 % (4.3-6.0) Aspartate Amino Transf 70 U/L (15-37) (AST/SGOT) Alkaline Phosphatase 42 U/L (45-117) Troponin I LESS THAN 0.02 LESS THAN 0.02 LESS THAN 0.02 NG/ML NG/ML NG/ML (0.02-0.05) (0.02-0.05) (0.02-0.05) Vitamin B12 Level 1119 PG/ML (193-986) Triglycerides Level 174 MG/DL (42-150) HDL Cholesterol 36.1 MG/DL (40.0-60.0) Imaging Last Impressions Myocardial Perfusion Scan Nuc Med 01/31/17 0000 Signed Impressions: Service Date/Time: January 14:33 - CONCLUSION: 1. No stress-induced ischemia or other acute abnormality seen. 2. 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 3. Low normal left ventricular ejection fraction. RISK CATEGORY: Low Sarbjit Garnica MD Chest X-Ray 01/30/17 1020 Signed Impressions: Service Date/Time: Monday, January 30, 2017 10:17 - CONCLUSION: No evidence of acute cardiopulmonary disease. Sarbjit Garnica MD Head CT 01/30/17 0000 Signed Impressions: Service Date/Time: Monday, January 30, 2017 11:26 - CONCLUSION: Negative noncontrast head CT. Sarbjit Garnica MD PE at Discharge GENERAL: Well-nourished, well-developed obese male patient in [facility]. SKIN: Warm and dry. No rash. HEAD: Normocephalic. Atraumatic. EYES: Pupils equal and round. No scleral icterus. No injection or drainage. No nystagmus. ENT: No nasal bleeding or discharge. Mucous membranes pink and moist. NECK: Supple. Trachea midline. CARDIOVASCULAR: Regular rate and rhythm. S1, S2 noted. No murmur appreciated. RESPIRATORY: No accessory muscle use. Clear to auscultation. Breath sounds equal bilaterally. GASTROINTESTINAL: Abdomen soft, non-tender, nondistended. Normoactive bowel sounds x4. MUSCULOSKELETAL: No obvious deformities. Trace b/l lower extremity edema. NEUROLOGICAL: Awake and alert. No obvious cranial nerve deficits. Motor grossly within normal limits. 5/5 muscle strength in bilateral upper and lower extremities. Normal speech. Nonfocal PSYCHIATRIC: Slightly anxious mood; insight and judgment normal. Hospital Course 71-year-old male with history of HTN, HLD, DM, BPPV, presents with intermittent chest pains located at the left anterior lateral chest with radiation into the left shoulder and jaw, described as an intermittent 3/10 ache, associated with mild shortness of breath, but no nausea/vomiting, palpitations or diaphoresis. Chest Pain, suspect ACS: some typical and atypical components. S/p 2 aspirin and nitro spray prior to arrival. Ruled out for [place]. Continue aspirin, statin, atenolol. IV morphine prn pain. Hold off on heparin for now unless troponins are positive. Checked lipid panel and HgbA1c LDL 87 A1c 7.9. Monitor on telemetry. Lexiscan without ischemia Dizziness, suspect BPPV: secondary to head trauma 3years ago. Head CT images reviewed by me, negative for acute findings. Start meclizine 25mg po q6h. improved Dyspnea on exertion and Generalized Weakness related to acute diastolic heart failure. Improved continue Lasix with potassium supplementation. CHF education , I/O and monitor weight. Counseled regarding noncompliance. Diabetes Mellitus: reportedly on metformin at home, Will restart. Monitor Accu- cheks and cover with SSI. A1c 7.9 Hypertension: chronic, continue patient's atenolol. Monitor BP, adjust antihypertensives as needed. Restart losartan Hyperlipidemia: chronic, continue patient's statin. Monitor LFTs AST slightly up PTSD/Depression: chronic, continue patient's Bupropion, Trazodone, Xanax prn. DVT Prophylaxis: teds/SCDs Pt Condition on Discharge: Stable Discharge Disposition: Discharge Home Discharge Time: <= 30 minutes Discharge Instructions DIET: Follow Instructions for: Heart Healthy Diet Activities you can perform: Regular-No Restrictions Activities to Avoid: Driving Follow up Referrals: PCP Follow-up - 1 Week New Medications: Hydrocodone-Acetaminophen (Hydrocodone-Acetaminophen) 7.5-325 mg Tab 1 TAB PO Q6HR PRN PAIN SCALE 6 TO 10 #28 TAB Meclizine (Meclizine) 25 Mg Tab 25 MG PO Q6H PRN vertigo #28 TAB Continued Medications: Alprazolam (Xanax) 0.5 Mg Tab 0.5 MG PO DAILY PRN ANXIETY Ref 0 TAB Aspirin (Aspirin) 81 Mg Tabdr 81 MG PO BID TAB Atenolol (Atenolol) 50 Mg Tab 50 MG PO DAILY Blood Pressure Management #30 Ref 0 TAB Bupropion HCl (Bupropion HCl) 100 Mg Tab 100 MG PO BID Control Depression Ref 0 TAB Cetirizine (Cetirizine) 10 Mg Tab 10 MG PO DAILY Allergies Ref 0 TAB Cholecalciferol (Vitamin D-3) 1,000 Unit Tab 1000 UNITS PO DAILY #30 Ref 0 TAB Fluticasone Nasal Ruby (Flonase Nasal Ruby) 50 Mcg/Act Ruby 2 SPRAY EACH NARE DAILY Allergies #1 Ref 0 BOTTLE Furosemide (Lasix) 40 Mg Tab 40 MG PO DAILY #30 Ref 0 TAB Hydrocortisone Topical (Hydrocortisone Topical) 2.5% Cream 1 APPLIC TOPICAL BID PRN INFLAMMATION Ref 0 GM Losartan (Losartan) 100 Mg Tab 100 MG PO DAILY Blood Pressure Management #30 Ref 0 TAB Metformin (Metformin) 500 Mg Tab 500 MG PO BID With meals Blood Sugar Management #60 Ref 0 TAB Potassium Chloride ER (Potassium Chloride ER) 20 Meq Tab 20 MEQ PO DAILY Electrolyte Replacement #30 Ref 0 TAB Pravastatin (Pravastatin) 40 Mg Tab 40 MG PO HS Cholesterol Management #30 Ref 0 TAB Trazodone HCl (Trazodone HCl) 100 Mg Tab 400 MG PO HS PRN SLEEP Triamcinolone Topical (Triamcinolone Topical) 0.1% Cream 1 APPLIC TOPICAL BID Apply to rash on face Inflammation Ref 0 GM Patricio Myles MD Feb 01, 2017 13:29
[2017-02-01] MEDS ORDERED: metFORMIN HCL 500 MG TAB PO SCH (14:00)
[2017-02-01] MEDS ORDERED: LOSARTAN 50 MG TAB PO SCH (15:00)
[2017-02-01 15:45] VITALS: BP 135/83; PULSE 66
== END 2017-02-01 18:31 | disposition home or self-care (01) | DRG 292 ==
LOC: NEPE 09:56 → NEDA 12:28 → N04A 18:52
PROVIDERS: ADMIT Internal Medicine; ATTEND Internal Medicine
DX: I50.31 Acute diastolic (congestive) heart failure (principal); I20.0 Unstable angina; E11.65 Type 2 diabetes mellitus with hyperglycemia; K21.9 Gastro-esophageal reflux disease without esophagitis; G47.00 Insomnia, unspecified; I11.0 Hypertensive heart disease with heart failure; E66.9 Obesity, unspecified; E78.5 Hyperlipidemia, unspecified; H81.10 Benign paroxysmal vertigo, unspecified ear; F43.10 Post-traumatic stress disorder, unspecified; F32.9 Major depressive disorder, single episode, unspecified; Z79.84 Long term (current) use of oral hypoglycemic drugs; Z91.19 Patient's noncompliance with other medical treatment and regimen; Z68.38 Body mass index [BMI] 38.0-38.9, adult; Z87.820 Personal history of traumatic brain injury
CPT/HCPCS: 70450; 71010; 78452; 80048; 80061; 80076; 82550; 82552; 82607; 82948; 83036; 83735; 84443; 84484; 85025; 85610; 85730; 93005; 93017; 93306; A9502; J1644; J1815; J2785